=== PATIENT | male | born 1945 | race Caucasian/White ===

== ENCOUNTER 2022-05-28 18:21 | Emergency (ER) | payer MEDICARE, SELFPAY ==
[2022-05-28] VITALS (28 sets, daily range): BP systolic 101–128; BP diastolic 57–76; PULSE 62–86; RESP 14–23; TEMP 36.6; O2SAT 98–100
--- NOTE | ~2022-05-28 | CT_ITS ---
EXAMINATION: CT facial & cervical spine wo DATE: 05/29/2022 08:31 INDICATION: Fall. Left facial swelling TECHNIQUE: Computed tomography (CT) of the facial bones and maxillofacial region was performed withou t intravenous contrast. Automated exposure control and iterative reconstruction technique were employ ed. Exam dose: 347.41 mGy-cm total exam DLP. COMPARISON: None. FINDINGS: Mildly displaced fracture of the lateral wall of the left orbit. Mildly depressed left zygomatic arch fracture. Linear none breast There is a linear nondisplaced fracture at the left inferior orbital rim, continuing along the anteri or wall of left maxillary sinus, without depression. Right facial bones are intact. Pterygoid plates are intact. Normal alignment at the temporal mandibular joints. No mandibular fracture is detected. C1 and C2 are normally aligned. No cervical spine fracture or dislocation or locked facet. Severe degenerative disc disease at C5-6 and C6-7. There is degenerative change since the apophyseal joints, particularly bilaterally at C3-4. Uncovertebral joint spurring is noted particularly at C5-6 and C6-7.. IMPRESSION: Prominent left frontal and temporal cephalohematoma, left periorbital hematoma Fractures of the lateral wall left orbit Left inferior orbital rim fracture and nondepressed fracture of the anterior wall of the left maxilla ry sinus Cervical spondylosis Reviewed, dictated and finalized at [facility]. Reviewed, dictated and finalized at location A. WASHER IMPRESSION: Prominent left frontal and temporal cephalohematoma, left periorbi mckenna hematoma Fractures of the lateral wall left orbit Left inferior orbital rim fracture and nondepressed fracture of the anterior wa ll of the left maxillary sinus Cervical spondylosis
--- NOTE | ~2022-05-28 | XR_ITS ---
XR pelvis 1-2V DATE: 05/29/2022 08:31 INDICATION: Fall. Pelvic injury, pain TECHNIQUE: AP view COMPARISON: None FINDINGS: Transitional first sacral vertebra with lumbarization on the left. Degenerative disc disease in the lower lumbar spine. Mild bilateral hip osteoarthritis. Normal alignment at the pubic symphysis and sacroiliac joints. No pelvic fracture or hip dislocation is detected. IMPRESSION: Transitional S1 vertebra Lower lumbar spine degenerative disc disease Bilateral hip osteoarthritis No pelvic fracture is detected Reviewed, dictated and finalized at location A. ARE DIRECTOR
--- NOTE | ~2022-05-28 | CT_ITS ---
EXAMINATION: CT brain wo con DATE: 05/29/2022 08:31 INDICATION: Patient fell this morning. Left facial swelling. TECHNIQUE: Computed tomography (CT) of the head was performed without intravenous contrast. The mA wa s adjusted according to patient size. Iterative reconstruction technique was employed. Exam dose: 60 5.33 mGy-cm total exam DLP. COMPARISON: May 28, 2022 CDT FINDINGS: Prominent left frontal and temporal cephalohematoma and left periorbital hematoma. Fracture of the lateral wall of the left orbit. Mildly depressed left zygomatic arch fracture. The cranial vault is intact. No coup or contrecoup intracranial injury is identified. No cerebral contusion or subdural or epidura l hematoma. Moderate central and cortical cerebral and mild cerebellar atrophy. Bilateral carotid siphon internal carotid artery calcifications. There is nonspecific diminished atte nuation of the cerebral white matter, likely due to chronic small vessel ischemic changes. No intracranial mass lesion or hemorrhage, midline shift or mass effect effect. IMPRESSION: Prominent left frontal and temporal cephalohematoma and left periorbital hematoma Fracture of the lateral wall of the left orbit and left zygomatic arch No acute intracranial finding Reviewed, dictated and finalized at [facility]. Reviewed, dictated and finalized at location A. DRYER MECHANIC IMPRESSION: Prominent left frontal and temporal cephalohematoma and left perio rbital hematoma Fracture of the lateral wall of the left orbit and left zygomatic arch No acute intracranial finding
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
--- NOTE | ~2022-05-28 | CT_ITS ---
EXAMINATION: CT cervical spine wo con DATE: 05/28/2022 19:25 INDICATION: head injury TECHNIQUE: Computed tomography (CT) of the cervical spine was performed without intravenous contrast. Automated exposure control and iterative reconstruction technique were employed. The dose-length pro duct was 273.56 mGy-cm. COMPARISON: None. FINDINGS: Mild motion artifact. Vertebral Body Alignment: Intact. Trace anterolisthesis at C3-4, likely on a degenerative basis. Craniocervical and atlantoaxial alignment: Moderate degenerative change. Alignment intact. Osseous structures/fracture: No evidence of a lytic or blastic process in the visualized spine. No e vidence of acute fracture. . Cervical soft tissues: The paraspinal soft tissues planes are maintained. Biapical pleural scarring. Degenerative changes: Multilevel moderate degenerative disc disease. Multilevel moderate facet arthro donato. Severe left neural foraminal narrowing at C6-7. No severe central canal stenosis. IMPRESSION: No acute fracture or traumatic malalignment in the cervical spine. Reviewed, dictated and finalized at location K. GRAPHIC TYPEWRITER MECHANIC
--- NOTE | 2022-05-28 18:50 | PC.NURSE ---
Obtained allergy list from [facility]
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
--- NOTE | 2022-05-28 19:17 | PC.NURSE ---
Report received from CALISTA Elkins. Assumed care of patient at this time.
[2022-05-28] MEDS: LORazepam INJ (*CRX) 2 MG/ML VIAL 0.5 MG IV PUSH (19:57)
[2022-05-28] MEDS: levoFLOXacin 750 MG TABLET PO (22:29)
[2022-05-29] VITALS (17 sets, daily range): BP systolic 107–128; BP diastolic 63–87; PULSE 60–81; RESP 16–19; O2SAT 96–100
--- NOTE | 2022-05-29 03:32 | PC.NURSE ---
Patient still waiting for EMS to arrive to transport him back to the [facility]. Per pulling unit floorhand, updated ETA is 0400.
--- NOTE | 2022-05-29 04:39 | PC.NURSE ---
Per secretary of state, new ETA is 0630 to transport patient back home. Patient resting on stretcher with eyes closed, no acute distress, VSS, call light within reach.
--- NOTE | 2022-05-29 08:07 | PC.NURSE ---
Pt had unwitnessed fall, pt found on floor on bottom. Pt assisted to bed by RN/auditor in charge, has no c/o pain in [place] or legs, assessment post fall by Dr. Savage. Pt moved to bed closer to nurses station.
--- NOTE | 2022-05-29 08:15 | PC.NURSE ---
Pt. dentures x 1 moved from room 10 to room 7 with pt. by CALISTA Hall. LESLIE ORNELAS, Lacie has re-evaluated pt. post fall.
== END 2022-05-29 11:44 ==
PROVIDERS: Emergency Provider Emergency Medicine
DX: S02.842A Fracture of lateral orbital wall, left side, initial encounter for closed fracture (principal); S02.40FA Zygomatic fracture, left side, initial encounter for closed fracture; S01.112A Laceration without foreign body of left eyelid and periocular area, initial encounter; R51.9 Headache, unspecified; F03.90 Unspecified dementia, unspecified severity, without behavioral disturbance, psychotic disturbance, mood disturbance, and anxiety; M16.0 Bilateral primary osteoarthritis of hip; M51.36 Other intervertebral disc degeneration, lumbar region; M47.812 Spondylosis without myelopathy or radiculopathy, cervical region; W19.XXXA Unspecified fall, initial encounter; Y04.2XXA Assault by strike against or bumped into by another person, initial encounter
CPT/HCPCS: 12013; 70450; 70486; 72125; 72170; 96374; 99284; A9270; J2060

== ENCOUNTER 2022-12-14 09:17 | Emergency (ER) | payer MEDICARE, SELFPAY ==
--- NOTE | ~2022-12-14 | CT_ITS ---
EXAMINATION: CT brain wo con DATE: 12/14/2022 10:25 INDICATION: Head injury TECHNIQUE: Computed tomography (CT) of the abdomen and pelvis was performed without intravenous contr ast. The dose-length product was 605.33 mGy-cm. Automated exposure control and iterative reconstructi on technique were employed. COMPARISON: CT dated 11/21/2022. FINDINGS: Generalized atrophy. There are scattered mild periventricular and subcortical white matter changes, most likely related to small vessel ischemic disease (microangiopathy). No ventriculomegaly or midline shift. There is intracranial atherosclerosis. No acute intracranial hemorrhage, infarction , mass or mass effect. Paranasal sinuses and mastoids are pneumatized. No depressed skull fractures. IMPRESSION: 1. No acute intracranial abnormality. Reviewed, dictated and finalized at location B.
--- NOTE | ~2022-12-14 | CT_ITS ---
EXAMINATION: CT facial & cervical spine wo DATE: 12/14/2022 10:25 INDICATION: Head injury. Fall. TECHNIQUE: Computed tomography (CT) of the maxillofacial region and cervical spine was performed with out intravenous contrast. Automated exposure control and iterative reconstruction technique were empl oyed. The dose-length product was 345.49 mGy-cm. COMPARISON: CT maxillofacial and CT cervical spine 05/29/2022 FINDINGS: MAXILLOFACIAL CT: There are likely changes of ocular lens replacement surgeries. There is mucosal thickening in the par anasal sinuses. There is a small left mastoid effusion. There is cerumen in the external auditory can als. There is leftward deviation of the nasal septum. There are old fracture deformities of the nasal bones. There are old fracture deformities of the left zygomatical maxillary complex. CERVICAL SPINE CT: There is mild emphysema. There is mild scarring at the lung apices. There is 2 mm anterolisthesis of C3 on C4. Vertebral body heights are normal. There is mildly decreased disc height at C2-C3 and C3-C4 and severely decreased disc height at C5-C6 and C6-C7. The following disc levels are specifically di scussed: C2-C3: There is moderate bilateral uncovertebral joint osteoarthritis. There is severe bilateral face t joint osteoarthritis. There is mild left neural foraminal stenosis. There is mild central canal roxy nosis. C3-C4: There is moderate bilateral uncovertebral joint osteoarthritis. There is severe bilateral face t joint osteoarthritis. There is mild bilateral neural foraminal stenosis. There is mild central claude l stenosis. C4-C5: There is mild left uncovertebral joint osteoarthritis. There is mild bilateral facet joint ost eoarthritis. There is no neural foraminal stenosis. There is mild central canal stenosis. C5-C6: There is severe bilateral uncovertebral joint osteoarthritis. There is severe right and mild l eft facet joint osteoarthritis. There is mild bilateral neural foraminal stenosis. There is mild cent ral canal stenosis. C6-C7: There is severe bilateral uncovertebral joint osteoarthritis. There is severe bilateral facet joint osteoarthritis. There is mild bilateral neural foraminal stenosis. There is mild central canal stenosis. C7-T1: There is mild bilateral uncovertebral joint osteoarthritis. There is severe right and moderate left facet joint osteoarthritis. There is mild right neural foraminal stenosis. There is no central canal stenosis. IMPRESSION: 1. No acute fracture. 2. Severe cervical spondylosis. Reviewed, dictated and finalized at location A.
[2022-12-14 09:23] VITALS: BP 119/57; PULSE 77; RESP 20; TEMP 36.5; O2SAT 99
--- NOTE | 2022-12-14 10:12 | ED.GENADULT ---
HPI - General Adult General Chief complaint: Fall Stated complaint: fall Time Seen by Provider: 12/14/22 09:17 History of Present Illness HPI narrative: 77-year-old male present to the emergency department for evaluation after having unwitnessed ground-level fall. Nursing staff heard the fall but did not see the fall. Patient was found with an injury to his left eyebrow and this was repaired with Steri-Strips site. Upon arrival to the emergency department patient denies any pain or complaint. Related Data Allergies Allergy/AdvReac Type Severity Reaction Status Date / Time amoxicillin Allergy Unknown Verified 11/21/22 08:44 montelukast Allergy Unknown Verified 11/21/22 08:44 [id number] Reductase Allergy Unknown Verified 11/21/22 08:44 Inhibitor Review of Systems Review of Systems: All systems reviewed & are unremarkable except as noted in HPI and below PMFSH Past Medical History Medical History (Updated 12/14/22 @ 11:44 by Ortega Saavedra MD) Alzheimer's dementia Surgical History Surgical History (Updated 11/21/22 @ 19:16 by Oj Lawton MD) Surgical history unknown Exam Narrative: APPEARANCE: Well appearing, no pain, no distress, well-nourished. HEAD: normocephalic, left eyebrow injury. EYES: PERRLA/EOMI, conjunctivae clear. NOSE: Normal no drainage EARS:TMS clear with good light reflex. THROAT: Pharynx clear, no exudate. NECK: Supple. No adenopathy, no masses. RESPIRATORY: Airway patent, respirations nonlabored. Clear to auscultation bilaterally, no rales, rhonchi, wheezing. CARDIOVASCULAR: Regular rate and rhythm without murmurs rubs or gallops. ABDOMINAL: Soft, nontender, nondistended, normal bowel sounds MUSCULOSKELETAL: Moves all extremities. Strength/ROM intact, No edema, No calf tenderness. NEURO: Alert. Cranial nerves II through XII intact. Grossly intact SKIN: Warm, dry. Normal Color Course Course Emergency Course: 77-year-old male presented to ED for evaluation after having a ground-level fall. Patient does have a laceration over the left eyebrow that was repaired prior to arrival. Patient had negative CTs. Patient is at his baseline and declines any pain or injury. Patient is being discharged back to his care facility. Vital Signs Vital signs: Vital Signs Temperature 97.7 F 09/13/23 09:23 Pulse Rate 77 12/14/22 09:23 Respiratory Rate 20 12/14/22 09:23 Blood Pressure 119/57 L 12/14/22 09:23 Pulse Oximetry 99 12/14/22 09:23 Oxygen Delivery Room Air 12/14/22 09:23 Temperature 98.1 F 12/14/22 11:26 Pulse Rate 78 12/14/22 13:11 Respiratory Rate 20 12/14/22 13:11 Blood Pressure 150/72 H 12/14/22 13:11 Pulse Oximetry 99 12/14/22 13:11 Oxygen Delivery Room Air 12/14/22 09:23 Medical Decision Making Differential Diagnosis Differential Diagnosis: Facial laceration, facial fracture, intracranial injury, cervical spine fracture Vital Signs Vital Signs: Vital Signs Temperature 97.7 F 12/14/22 09:23 Pulse Rate 77 12/14/22 09:23 Respiratory Rate 20 12/14/22 09:23 Blood Pressure 119/57 L 12/14/22 09:23 Pulse Oximetry 99 12/14/22 09:23 Oxygen Delivery Room Air 12/14/22 09:23 Temperature 98.1 F 12/14/22 11:26 Pulse Rate 78 12/14/22 13:11 Respiratory Rate 12/14/22 13:11 Blood Pressure 150/72 H 12/14/22 13:11 Pulse Oximetry 99 12/14/22 13:11 Oxygen Delivery Room Air 12/14/22 09:23 Imaging Data Radiologist's impression: Impressions Head CT 12/14/22 10:26 IMPRESSION: 1. No acute intracranial abnormality. Head/Cervical Spine/Facial Bones CT 12/14/22 10:33 IMPRESSION: 1. No acute fracture. 2. Severe cervical spondylosis. Discharge Plan Discharge Clinical Impression: Head injury Patient Disposition: NH Assisted/Asst Living Condition: Stable Instructions: Antibiotic Form Additional Instructions: Have close follow-up with your obi
[2022-12-14 11:26] VITALS: BP 129/70; PULSE 72; RESP 22; TEMP 36.7; O2SAT 99
[2022-12-14 13:11] VITALS: BP 150/72; PULSE 78; RESP 20; O2SAT 99
== END 2022-12-14 13:12 ==
PROVIDERS: Emergency Provider Emergency Medicine
DX: S09.93XA Unspecified injury of face, initial encounter (principal); G30.9 Alzheimer's disease, unspecified; M47.812 Spondylosis without myelopathy or radiculopathy, cervical region; W18.30XA Fall on same level, unspecified, initial encounter
CPT/HCPCS: 70450; 70486; 72125; 99284